=== PATIENT | female | born 1955 | race Caucasian/White ===

== ENCOUNTER 2017-12-20 13:25 | Emergency (ER) | payer SELFPAY ==
[2017-02-05 17:00] VITALS: Wt 79.4 kg
[~2017-12-20 13:25] MED LIST: ACET-1966 PO; ASPI-757 PO; CELE-1 PO; DIA5 PO; HYDR-389 PO; MELO-150 PO; OXYC-823 PO
[2017-12-20] MEDS ORDERED: MULT-1335 PO (13:51)
[2017-12-20] MEDS ORDERED: NAPR220C12 PO (13:51)
[2017-12-20] MEDS ORDERED: NS(*) 0.9% 1000 ML BAG 1,000 ML IV ONE (14:25)
[2017-12-20] MEDS ORDERED: MORPHINE 2 MG/ML SYR IVP ONE (14:25)
[2017-12-20 14:30] LABS: PLATELET COUNT, AUTOMATED 226 K/uL (150-450)
[2017-12-20] MEDS ORDERED: ONDANSETRON 4 MG/2 ML VIAL IVP ONE (14:30)
--- NOTE | 2017-12-20 14:31 | ER Report ---
History and Physical Time Seen By MD: 14:00 Hx. of Stated Complaint: LLQ PAIN STARTED AT 0530 TODAY. PT REPORTS FEVERS/CHILLS, DIARRHEA & VOMITING. HPI/ROS CHIEF COMPLAINT: Abdominal pain HISTORY OF PRESENT ILLNESS: 62-year-old female patient presents to emergency room with complaint of abdominal pain. Patient states this started approximately 5:30 this morning. She states the pain seems to be on the left side and radiates around to the back. She states she's had some nausea and vomiting. She denies having any diarrhea. She did have a small bowel movement this morning. She states that she did have fevers and chills. States she's not had anything to eat or drink today. She states that there is nothing seems to make the pain better or worse. States that it seems to be progressively worsening. Patient has taken any medication for this. REVIEW OF SYSTEMS: Respiratory: No cough, no dyspnea. Cardiovascular: No chest pain, no palpitations. Gastrointestinal: As noted above Musculoskeletal: No back pain. Allergies: Coded Allergies: No Known Drug Allergies (Unverified , 12/20/17) Home Meds Active Scripts Ondansetron (ZOFRAN ODT) 4 Mg Tab.rapdis, 4 MG PO Q6H Y for NAUSEA/VOMITING, # 20 TAB.[place] Prov:VASYL NATION [facility] 12/20/17 Hydrocodone Bit/Acetaminophen (HYDROCODON-ACETAMINOPHEN 5-325) 1 Each Tablet, 1 EACH PO Q4-6H Y for PAIN for 5 Days, #20 TAB Prov:VASYL NATION [facility] 12/20/17 Tamsulosin Hcl (FLOMAX) 0.4 Mg Cap.er.24h, 0.4 MG PO DAILY for 30 Days, #30 CAP Prov:VASYL NATION [facility] 12/20/17 Reported Medications Multivitamin With Minerals (MULTIPLE VITAMIN) 1 Each Tablet, 1 EACH PO DAILY, TAB 12/20/17 Naproxen Sodium (ALEVE) 220 Mg Capsule, 220 MG PO DAILY, CAPSULE 12/20/17 Discontinued Reported Medications Oxycodone Hcl (OXYCONTIN) 10 Mg Tab.er.12h, 10 MG PO Q12H, TAB 02/08/17 Acetaminophen/Hydrocodone (HYDROCODON-ACETAMINOPH 7.5-325) 1 Each Ea, 1-2 EACH PO Q4-6H Y for PAIN, EA 02/08/17 Celecoxib (CELEBREX) 200 Mg Capsule, 200 MG PO BID, CAPSULE take with food 02/08/17 Diazepam (VALIUM) 5 Mg Tablet, 5 MG PO Q6H Y for SPASMS, #15 TAB 02/08/17 Acetaminophen (TYLENOL) 325 Mg Tablet, 325 MG PO Q4-6H Y for PAIN, TAB 01/28/17 Discontinued Scripts Aspirin (ASPIRIN) 325 Mg Tablet, 325 MG PO QDAY for 30 Days, #30 TAB Prov:ANDREW KNUTSON MD 02/08/17 Past Medical/Surgical History Patient has a past medical history of arthritis. Patient has a surgical history of heart catheter, left ovary removed, right knee surgery, bilateral knee replacement, tonsillectomy, laser treatment to retina. Reviewed Nurses Notes: Yes Hx Smoking: No Smoking Status: Never Smoker Hx Substance Use Disorder: No Hx Alcohol Use: No Constitutional Vital Sign - Last 24 Hours 12/20/17 12/20/17 12/20/17 12/20/17 13:47 13:59 14:25 14:30 Temp 98.1 Pulse 112 87 Resp 26 18 B/P (MAP) 129/74 129/74 (92) 122/54 (76) Pulse Ox 92 O2 Delivery Room Air 12/20/17 12/20/17 12/20/17 12/20/17 14:35 15:30 16:00 16:00 Pulse 76 Resp 14 B/P (MAP) 96/49 (65) 101/54 (70) 101/54 (70) 12/20/17 12/20/17 12/20/17 12/20/17 16:38 16:43 16:49 17:00 Pulse 85 Resp 14 B/P (MAP) 109/64 (79) 107/73 (84) Pulse Ox 83 O2 Flow Rate 3.0 12/20/17 17:13 Pulse 64 Resp 11 Pulse Ox 100 Physical Exam General Appearance: The patient is alert, has no immediate need for airway protection and no current signs of toxicity. Respiratory: Chest is non tender, lungs are clear to auscultation. Cardiac: regular rate and rhythm Gastrointestinal: Abdomen is soft and tender in left lower quadrant, no masses, bowel sounds are hypoactive. Musculoskeletal: Neck: Neck is supple and non tender. Extremities have full range of motion and are non tender. Skin: No rashes or lesions. DIFFERENTIAL DIAGNOSIS: After history and physical exam differential diagnosis was considered for abdominal pain including but not limited to appendicitis, cholecystitis, gastritis and urinary tract infection. Included in the differential is kidney stone. Medical Decision Making Data Points Result Diagram: 12/20/17 1411 12/20/17 1411 Laboratory Hematology Test 12/20/17 14:11 Red Blood Count 4.42 M/uL (4.17-5.56) Mean Corpuscular Volume 90.3 fL (80.0-96.0) Mean Corpuscular Hemoglobin 30.7 pg (26.0-33.0) Mean Corpuscular Hemoglobin Concent 34.1 g/dL (32.0-36.0) Red Cell Distribution Width 13.0 % (11.5-14.5) Mean Platelet Volume 9.6 fL (7.2-11.1) Neutrophils (%) (Auto) 87.8 % (39.4-72.5) Lymphocytes (%) (Auto) 9.4 % (17.6-49.6) Monocytes (%) (Auto) 2.3 % (4.1-12.4) Eosinophils (%) (Auto) 0.1 % (0.4-6.7) Basophils (%) (Auto) 0.4 % (0.3-1.4) Nucleated RBC Relative Count (auto) 0.0 /100WBC Neutrophils # (Auto) 7.6 K/uL (2.0-7.4) Lymphocytes # (Auto) 0.8 K/uL (1.3-3.6) Monocytes # (Auto) 0.2 K/uL (0.3-1.0) Eosinophils # (Auto) 0.0 K/uL (0.0-0.5) Basophils # (Auto) 0.0 K/uL (0.0-0.1) Nucleated RBC Absolute Count (auto) 0.00 K/uL Sodium Level 140 mmol/L (137-145) Potassium Level 3.8 mmol/L (3.5-5.0) Chloride Level 107 mmol/L (98-107) Carbon Dioxide Level 22 mmol/L (22-31) Blood Urea Nitrogen 20 mg/dl (7-18) Creatinine 1.10 mg/dl (0.52-1.04) Glomerular Filtration Rate Calc 50.0 Random Glucose 137 mg/dl (75-110) Lactate 1.5 mmol/L (0.7-2.1) Calcium Level 9.6 mg/dl (8.4-10.2) Total Bilirubin 0.6 mg/dl (0.2-1.3) Aspartate Amino Transf (AST/SGOT) 38 U/L (0-35) Alanine Aminotransferase (ALT/SGPT) 29 U/L (0-56) Alkaline Phosphatase 110 U/L (0-126) Total Protein 7.5 g/dl (6.3-8.2) Albumin 4.1 g/dl (3.5-5.0) Chemistry Test 12/20/17 14:11 White Blood Count 8.7 k/uL (4.5-11.0) Red Blood Count 4.42 M/uL (4.17-5.56) Hemoglobin 13.6 g/dL (12.0-16.0) Hematocrit 39.9 % (34.0-47.0) Mean Corpuscular Volume 90.3 fL (80.0-96.0) Mean Corpuscular Hemoglobin 30.7 pg (26.0-33.0) Mean Corpuscular Hemoglobin Concent 34.1 g/dL (32.0-36.0) Red Cell Distribution Width 13.0 % (11.5-14.5) Platelet Count 226 K/uL (150-450) Mean Platelet Volume 9.6 fL (7.2-11.1) Neutrophils (%) (Auto) 87.8 % (39.4-72.5) Lymphocytes (%) (Auto) 9.4 % (17.6-49.6) Monocytes (%) (Auto) 2.3 % (4.1-12.4) Eosinophils (%) (Auto) 0.1 % (0.4-6.7) Basophils (%) (Auto) 0.4 % (0.3-1.4) Nucleated RBC Relative Count (auto) 0.0 /100WBC Neutrophils # (Auto) 7.6 K/uL (2.0-7.4) Lymphocytes # (Auto) 0.8 K/uL (1.3-3.6) Monocytes # (Auto) 0.2 K/uL (0.3-1.0) Eosinophils # (Auto) 0.0 K/uL (0.0-0.5) Basophils # (Auto) 0.0 K/uL (0.0-0.1) Nucleated RBC Absolute Count (auto) 0.00 K/uL Glomerular Filtration Rate Calc 50.0 Lactate 1.5 mmol/L (0.7-2.1) Calcium Level 9.6 mg/dl (8.4-10.2) Total Bilirubin 0.6 mg/dl (0.2-1.3) Aspartate Amino Transf (AST/SGOT) 38 U/L (0-35) Alanine Aminotransferase (ALT/SGPT) 29 U/L (0-56) Alkaline Phosphatase 110 U/L (0-126) Total Protein 7.5 g/dl (6.3-8.2) Albumin 4.1 g/dl (3.5-5.0) EKG/Imaging Imaging EXAMINATION: CT abdomen and pelvis with contrast COMPARISON: None. HISTORY: abdominal pain PROCEDURE: Multiplanar contrast enhanced CT of the abdomen and pelvis with 85 mL intravenous Isovue 370. One of the following dose optimization techniques was utilized in the performance of this exam: Automated exposure control; adjustment of the mA and/or kV according to the patient's size; or use of an iterative reconstruction technique. Specific details can be referenced in the facility's radiology CT exam operational policy. FINDINGS: Visualized thorax: Atelectasis. No acute findings. Liver: Negative. Gallbladder and biliary system: Negative Spleen: Negative. Pancreas: Negative. Adrenal glands: Negative. Kidneys and bladder: Left kidney asymmetric delayed parenchymal enhancement with moderate hydronephrosis and perinephric stranding due to a 6 x 4 x 5 mm ureteral stone approximately 9 cm distal to the ureteropelvic junction. No other radiopaque urolithiasis is identified. The right kidney is unremarkable. Urinary bladder is within normal limits. Vessels: Within normal limits. Bowel and mesentery: Stomach, small bowel, and appendix are within normal limits. Small amount of stool in the colon. No bowel or mesenteric inflammation. Pelvic organs: Age-appropriate. Lymph nodes: No adenopathy. Free air/free fluid: None. Abdominal wall and osseous structures: Abdominal wall is intact. Mild degenerative change throughout the visualized spine. No acute findings. IMPRESSION: Left-sided moderate obstructive uropathy due to a 6 x 4 x 5 mm stone in the proximal ureter. Report Dictated By: Seth Brunson MD at 12/20/2017 3:23 PM Report E-Signed By: Seth Brunson MD at 12/20/2017 3:30 PM ED Course/Re-evaluation ED Course Patient was admitted examiner, history and physical or pain. Differential diagnoses were considered. On examination patient has significant amounts pain to the left lower quadrant that seemed to radiate around to the back. Patient was having uncontrollable amounts of pain. A CBC, CMP were done. Patient had normal labs. A CT scan of abdomen and pelvis was done which did show a large kidney stone. I discussed the findings with the patient and her . I believe that with size a kidney stone that we'll need to have lithotripsy to break it up. I did discuss the case with Dr. Tran, urologist. He recommended giving the patient pain medication, Flomax and having her follow-up with him on Friday. He stated that he would give her a call tomorrow. He requested that we print off a face sheet for him. That was done. We discussed with patient whether she felt able to go home. Patient states that she was concerned about the pain. I believe with proper pain control, hydrocodone and Flomax the patient will be able to tolerate being at home. She is return if condition worsens. I did inform her that Dr. Tran will be calling him. She verbalized understanding and agreement with plan. She states she would prefer to go home. Patient was discharged home. Decision to Disposition Date: Dec 20, 2017 Decision to Disposition Time: 16:00 Depart Departure Latest Vital Signs Vital Signs Date Time Temp Pulse Resp B/P (MAP) Pulse Ox O2 Delivery O2 Flow Rate FiO2 12/20/17 17:13 64 11 100 12/20/17 17:00 107/73 (84) 12/20/17 16:49 3.0 12/20/17 13:47 98.1 Room Air Impression: Primary Impression: Kidney stone on left side Condition: Improved Disposition: HOME OR SELF-CARE Referrals: MYNOR DOMINGUEZ PA-C (PCP) New Scripts Ondansetron (ZOFRAN ODT) 4 Mg Tab.rapdis 4 MG PO Q6H Y for NAUSEA/VOMITING, #20 TAB.[place] Prov: VASYL NATION STEV[facility] 12/20/17 Hydrocodone Bit/Acetaminophen (HYDROCODON-ACETAMINOPHEN 5-325) 1 Each Tablet 1 EACH PO Q4-6H Y for PAIN for 5 Days, #20 TAB Prov: CHAPISVASYL FNP 12/20/17 Tamsulosin Hcl (FLOMAX) 0.4 Mg Cap.er.24h 0.4 MG PO DAILY for 30 Days, #30 CAP Prov: VASYL NATION STEVEN 12/20/17 Patient Instructions: Kidney Stones (ED) Additional Instructions: Increase your water intake. Rest and take it easy. Await Dr. Anderson phone call tomorrow and follow up with him on Friday. Take hydrocodone for pain as needed every 4-6 hours. Take medication fairly regularity to stay ahead of pain. Take Flomax once daily until the stone passes or Dr. Tran counsels you otherwise. Return to the emergency department if your condition worsens CHAPISVASYL HARRIS Dec 20, 2017 14:31
[2017-12-20] MEDS ORDERED: IOPAMIDOL 76% 100 ML INFUS BTL 100 ML ONE (14:34)
--- NOTE | 2017-12-20 15:34 | RADIOLOGY IMAGING REPORT ---
[place] [facility] [place] NAME: Veronica Grey : 1955 MR: [id number] V: [id number] EXAM DATE: ORDERING PHYSICIAN: VASYL NATION TECHNOLOGIST: [place] [facility] [place] Veronica Grey : 1955 Visit/Account:[id number] Date of Sevice: 12/20/2017 EXAMINATION: CT abdomen and pelvis with contrast COMPARISON: None. HISTORY: abdominal pain PROCEDURE: Multiplanar contrast enhanced CT of the abdomen and pelvis with 85 mL intravenous Isovue 3 70. One of the following dose optimization techniques was utilized in the performance of this exam: A utomated exposure control; adjustment of the mA and/or kV according to the patient's size; or use of an iterative reconstruction technique. Specific details can be referenced in the facility's radiolo gy CT exam operational policy. FINDINGS: Visualized thorax: Atelectasis. No acute findings. Liver: Negative. Gallbladder and biliary system: Negative Spleen: Negative. Pancreas: Negative. Adrenal glands: Negative. Kidneys and bladder: Left kidney asymmetric delayed parenchymal enhancement with moderate hydronephro sis and perinephric stranding due to a 6 x 4 x 5 mm ureteral stone approximately 9 cm distal to the u reteropelvic junction. No other radiopaque urolithiasis is identified. The right kidney is unremarkab le. Urinary bladder is within normal limits. Vessels: Within normal limits. Bowel and mesentery: Stomach, small bowel, and appendix are within normal limits. Small amount of sto ol in the colon. No bowel or mesenteric inflammation. Pelvic organs: Age-appropriate. Lymph nodes: No adenopathy. Free air/free fluid: None. Abdominal wall and osseous structures: Abdominal wall is intact. Mild degenerative change throughout the visualized spine. No acute findings. IMPRESSION: Left-sided moderate obstructive uropathy due to a 6 x 4 x 5 mm stone in the proximal ureter. Report Dictated By: Seth Brunson MD at 12/20/2017 3:23 PM Report E-Signed By: Seth Brunson MD at 12/20/2017 3:30 PM WSN:[id number]
[2017-12-20 17:00] VITALS: BP 107/73
[2017-12-20] MEDS ORDERED: HYDR-385 PO (17:09)
[2017-12-20] MEDS ORDERED: TAMS0.4C25 PO (17:09)
[2017-12-20] MEDS ORDERED: ONDA4TAB PO (17:28)
[2017-12-20] MEDS ORDERED: ONDANSETRON 4 MG ODT TABDP SL ONE (17:30)
[2017-12-23] MEDS ORDERED: ACET500T68 PO (15:19)
== END 2017-12-20 17:32 | disposition home or self-care (01) ==
LOC: ER 14:08
DX: N20.0 Calculus of kidney (principal)
CPT/HCPCS: 74177; 83605; 85025; 96374; 96375; 99284; J2270; J2405; J7030; Q9967; S0119; 82040; 82247; 82310; 82374; 82435; 82565; 82947; 84075; 84132; 84155; 84295; 84450; 84460; 84520

== ENCOUNTER 2017-12-22 09:49 | Day surgery (SDC) | payer SELFPAY ==
[2017-02-05 17:00] VITALS: Ht 162.6 cm; Wt 77.6 kg
[~2017-12-22] VITALS: Ht 162.6 cm; Wt 77.6 kg
[~2017-12-22 09:49] MED LIST changes: +HYDR-385 PO; +MULT-1335 PO; +NAPR220C12 PO; +ONDA4TAB PO; +TAMS0.4C25 PO
[2017-12-22] MEDS ORDERED: NORMOSOL R SOLN(*) 1000 ML BAG 1,000 ML IV PRN (10:45)
[2017-12-22] MEDS ORDERED: MIDAZOLAM 2 MG/2 ML VIAL IVP PRN (10:45)
[2017-12-22] MEDS ORDERED: cefTRIAXone(*) 1 GM VIAL 1 GM in NS(*) 0.9% 100 ML ADDVANT BAG 100 ML IVPB ONE (10:45)
[2017-12-22] MEDS ORDERED: LIDOCAINE/SOD BICARB 8.4% SYR ID ONE (10:45)
[2017-12-22] MEDS ORDERED: FAMOTIDINE 20 MG TAB PO ONE (10:45)
[2017-12-22] MEDS ORDERED: ONDANSETRON 4 MG/2 ML VIAL ONE (11:17)
[2017-12-22] MEDS ORDERED: PROPOFOL EMUL(*) 10MG/ML 20 ML 20 ML ONE (11:17)
[2017-12-22] MEDS ORDERED: DEXAMETHASONE SOD PHOS 10MG/ML ONE (11:17)
[2017-12-22] MEDS ORDERED: LIDOCAINE MPF 1% 5 ML VIAL ONE (11:17)
[2017-12-22] MEDS ORDERED: fentaNYL CITR 100 MCG/2 ML AMP ONE (11:17)
[2017-12-22 11:19] VITALS: BP 124/66
[2017-12-22] MEDS ORDERED: IOPAMIDOL-200 50 ML VIAL IS ONE (11:38)
[2017-12-22] MEDS ORDERED: LIDOCAINE MPF 4% 200MG/5ML AMP ONE (12:25)
[2017-12-22] MEDS ORDERED: LIDOCAINE 4% SOLN 50 ML BTL TP ONE (12:27)
[2017-12-22] MEDS ORDERED: KETOROLAC 30 MG/ML VIAL ONE (13:10)
[2017-12-22] MEDS ORDERED: CEPH500T7 PO (13:21)
[2017-12-22] MEDS ORDERED: FAMO20TA28 PO (13:22)
[2017-12-22] MEDS ORDERED: IBUP600T22 PO (13:23)
[2017-12-22] MEDS ORDERED: PHEN200T32 PO (13:23)
[2017-12-22] MEDS ORDERED: HYDR-4308 PO (13:24)
[2017-12-22 13:42] VITALS: BP 125/63
[2017-12-22 13:46] VITALS: BP 119/62
[2017-12-22 13:48] VITALS: BP 110/67
--- NOTE | 2017-12-22 14:34 | RADIOLOGY IMAGING REPORT ---
FACILITY: [facility] PATIENT NAME: Veronica Grey : 1955 MR: [id number] V: [id number] EXAM DATE: ORDERING PHYSICIAN: EBRNA HARRIS TECHNOLOGIST: Location: [facility] - [place] Patient: Veronica Grey : 1955 Visit/Account:[id number] Date of Sevice: 12/22/2017 Examination: Retrograde pyelogram. HISTORY: Kidney stones. FINDINGS: 5 intraoperative fluoroscopic spot images are obtained during a left retrograde pyelogram a nd stent placement. 0.04 minutes of fluoroscopy time was used. The emergency response coordinator images are unremarkable. On the third image, a cystoscope is in place and there is retrograde opacification of the left ureter . A suspected filling defect is seen within the ureter at the level of the L4-L5 disc space. On the fourth image, a wire overlies the ureter and intrarenal collecting system. On the final image, a le ft nephroureteral stent has been placed. Contrast is seen within a nondilated intrarenal collecting system. IMPRESSION: 1. Limited retrograde pyelogram images with findings as above. Correlate with operative note. Report Dictated By: Francisco Britt at 12/22/2017 2:27 PM Report E-Signed By: Francisco Britt at 12/22/2017 2:30 PM WSN:[email or web address]
--- NOTE | 2017-12-23 04:23 | OPERATIVE REPORT 1 ---
EVENT DATE: December 22, 2017 SURGEON: Raphael Tran MD ANESTHESIOLOGIST: Chris Santillan MD ANESTHESIA: General. PREOPERATIVE DIAGNOSIS Left ureterolithiasis with associated severe colic, nausea and vomiting. POSTOPERATIVE DIAGNOSIS Left ureterolithiasis with associated severe colic, nausea and vomiting. PROCEDURE PERFORMED 1. Cystourethroscopy. 2. Left ureteral pyelogram. 3. Manipulation of left ureteral stone. 4. Left ureteral stent placement. DESCRIPTION OF PROCEDURE Under general anesthetic, the patient was prepped and draped in the extended lithotomy position. The 21 panendoscope admitted through the urethra into the bladder. No stones were visible in the bladder. The 10 cone tip was passed up the left collecting system to the stone. Ureteropyelogram showed distal left upper ureteral stone. Using the 10 cone tip, I was unable to dislodge the stone. 4% lidocaine mixed with jelly was introduced up the left ureter. Again, the stone would not dislodge. The access catheter was placed. The guide wire was placed. The guide wire was passed up to the stone and the guide wire was passed with some resistance on manipulation into the left kidney. X-ray confirmed satisfactory positioning in the left kidney. The 6 [place] x 26 cm Percuflex Plus was passed up the left ureter into the kidney fairly easily. It is my clinical impression that the stone might have eventually dislodged and hopefully migrated up into the left kidney. There was copious old bloody drainage. The bladder was drained. The scope was withdrawn. X-ray confirmed satisfactory positioning of the stent in the left kidney. Full curl was visible in the bladder. Patient tolerated the procedure satisfactorily and returned to the recovery room in satisfactory condition. INDICATION FOR PROCEDURE This is a 62-year-old white female complaining of left ureterolithiasis, which was confirmed today. Options were discussed with the patient, and she was agreeable to evaluation and therapy. Patient was having intermittent episodes of severe colic with associated nausea and vomiting. She was agreeable to further evaluation and therapy. That has been accomplished , see operative note for details. DISCHARGE INSTRUCTIONS Patient will be discharged home when alert and functional. Force fluids, 12 glasses of water per day. She is to strain all of her urine. She was sent home with strainers. Plan followup this coming for reevaluation and therapy of her ureterolithiasis. She will be discharged home on her usual medications in addition to Keflex, Pepcid, Imodium, Pyridium, and Vicodin therapy. NEREYDAD
[2017-12-23] MEDS ORDERED: ACET500T68 PO (15:19)
== END 2017-12-22 13:42 | disposition home or self-care (01) ==
LOC: OR 09:49
DX: N20.1 Calculus of ureter (principal)
CPT/HCPCS: 52330; 52332; 74420; 81001; 87088; C1758; C1894; C2617; J0696; J1100; J1885; J2001; J2405; J2704; J3010; J7050; Q9966

== ENCOUNTER 2017-12-25 00:16 | Day surgery (SDC) | payer SELFPAY ==
[2017-02-05 17:00] VITALS: Ht 162.6 cm; Wt 78.5 kg
[~2017-12-25] VITALS: Ht 162.6 cm; Wt 78.5 kg
[~2017-12-25 00:16] MED LIST changes: +ACET500T68 PO; +CEPH500T7 PO; +FAMO20TA28 PO; +HYDR-4308 PO; +IBUP600T22 PO; +PHEN200T32 PO
[2017-12-25 15:44] VITALS: BP 131/74
[2017-12-25] MEDS ORDERED: IOPAMIDOL-200 50 ML VIAL IS ONE (16:02)
[2017-12-25] MEDS ORDERED: LIDOCAINE/SOD BICARB 8.4% SYR ID ONE (16:05)
[2017-12-25] MEDS ORDERED: FAMOTIDINE 20 MG TAB PO ONE (16:05)
[2017-12-25] MEDS ORDERED: NORMOSOL R SOLN(*) 1000 ML BAG 1,000 ML IV PRN (16:05)
[2017-12-25] MEDS ORDERED: ceFAZolin(*) 1 GM VIAL 1 GM in NS(*) 0.9% 100 ML ADDVANT BAG 100 ML IVPB ONE (16:05)
[2017-12-25] MEDS ORDERED: MIDAZOLAM 2 MG/2 ML VIAL IVP PRN (16:05)
--- NOTE | 2017-12-25 16:08 | RADIOLOGY IMAGING REPORT ---
[place] [facility] [place] Veronica Grey : 1955 MR: [id number] V: [id number] EXAM DATE: ORDERING PHYSICIAN: BERNA HARRIS TECHNOLOGIST: Location: [facility] Patient: Veronica Grey : 1955 Visit/Account:[id number] Date of Sevice: 12/25/2017 EXAMINATION: KUB with obliques 12/25/2017 12:20 PM HISTORY: KIDNEY STONE COMPARISON: CT 12/20/2017 FINDINGS: Left ureteral stent appears to be in good position. There is an ovoid calcification proje cting lateral to the stent over the left L5 transverse spinous process on the frontal view which is n ot well-defined in either oblique projection. This could potentially be a persistent ureteral calcul us. There is no bony sclerotic focus on the CT to account for this. No other calculi evident. Pelv ic calcifications are shown by the CT to be phleboliths. Bowel gas pattern is nonspecific. Degenera tive spurring in the spine. IMPRESSION: Indwelling left ureteral stent with calcific density which could potentially represent a persistent ureteral stone at the L5 level. Report Dictated By: Clay Resendiz MD at 12/25/2017 4:00 PM Report E-Signed By: Clya Resendiz MD at 12/25/2017 4:04 PM WSN:[email or web address]
--- NOTE | 2017-12-25 16:08 | RADIOLOGY IMAGING REPORT ---
[place] [facility] [place] NAME: Veronica Grey : 1955 MR: [id number] V: [id number] EXAM DATE: ORDERING PHYSICIAN: BERNA HARRIS TECHNOLOGIST: Location[place] [facility] [place] Patient: Veronica Grey : 1955 Visit/Account:[id number] Date of Sevice: 12/25/2017 EXAMINATION: KUB with obliques 12/25/2017 12:20 PM HISTORY: KIDNEY STONE COMPARISON: CT 12/20/2017 FINDINGS: Left ureteral stent appears to be in good position. There is an ovoid calcification proje cting lateral to the stent over the left L5 transverse spinous process on the frontal view which is n ot well-defined in either oblique projection. This could potentially be a persistent ureteral calcul us. There is no bony sclerotic focus on the CT to account for this. No other calculi evident. Pelv ic calcifications are shown by the CT to be phleboliths. Bowel gas pattern is nonspecific. Degenera tive spurring in the spine. IMPRESSION: Indwelling left ureteral stent with calcific density which could potentially represent a persistent ureteral stone at the L5 level. Report Dictated By: Clay Resendiz MD at 12/25/2017 4:00 PM Report E-Signed By: Clay Resendiz MD at 12/25/2017 4:04 PM WSN:[email or web address]
[2017-12-25] MEDS ORDERED: ONDANSETRON 4 MG/2 ML VIAL ONE (16:18)
[2017-12-25] MEDS ORDERED: PROPOFOL EMUL(*) 10MG/ML 20 ML 20 ML ONE (16:18)
[2017-12-25] MEDS ORDERED: DEXAMETHASONE SOD PHOS 10MG/ML ONE (16:18)
[2017-12-25] MEDS ORDERED: fentaNYL CITR 100 MCG/2 ML AMP ONE ×2 (16:19→17:23)
[2017-12-25] MEDS ORDERED: GENTAMICIN 80 MG/2 ML VIAL ONE (16:34)
[2017-12-25] MEDS ORDERED: LACTATED RINGER 3000 ML BAG IR ONE (17:16)
[2017-12-25] MEDS ORDERED: NS 0.9% 3000 ML IRRIGATION BAG IR ONE (17:19)
[2017-12-25] MEDS ORDERED: HYDROmorphone HCL 2 MG/ML SDV ONE (17:29)
[2017-12-25] MEDS ORDERED: KETOROLAC 30 MG/ML VIAL ONE (17:30)
[2017-12-25] MEDS ORDERED: KETO30CA16 IJ (18:03)
--- NOTE | 2017-12-25 18:13 | RADIOLOGY IMAGING REPORT ---
[place] [facility] [place] NAME: Veronica Grey : 1955 MR: [id number] V: [id number] EXAM DATE: ORDERING PHYSICIAN: BERNA HARRIS TECHNOLOGIST: Location: [facility] Patient: Veronica Grey : 1955 Visit/Account:[id number] Date of Sevice: 12/25/2017 Exam: C-ARM FLUORO 1 HR Indication: hematuria, RAD Comparison: None available Findings: Fluoroscopy is provided for cystoscopy. Image shows a left ureteral stent. Fluoroscopy time one second DOSE: Air kerma was 1.12 mGy. IMPRESSION: Fluoroscopy for cystoscopy Report Dictated By: Rommel Hyatt at 12/25/2017 6:08 PM Report E-Signed By: Rommel Hyatt at 12/25/2017 6:09 PM WSN:[id number]
[2017-12-25 18:15] VITALS: BP 131/73
[2017-12-25 18:30] VITALS: BP 137/73
[2017-12-25 19:00] VITALS: BP 126/82
[2017-12-25 19:04] VITALS: BP 133/79
[2017-12-25 19:14] VITALS: BP 131/84
--- NOTE | 2017-12-25 19:14 | OPERATIVE REPORT 1 ---
EVENT DATE: December 25, 2017 SURGEON: Raphael Tran MD ANESTHESIOLOGIST: Raphael Muro MD ANESTHESIA: General anesthetic. PREOPERATIVE DIAGNOSIS Left renal lithiasis. POSTOPERATIVE DIAGNOSIS Left ureteral lithiasis. PROCEDURES PERFORMED 1. Cystourethroscopy. 2. Left ureteral stent removal. 3. Left laser lithotripsy of left ureteral stone. 4. Extraction of left ureteral stones. DESCRIPTION OF PROCEDURE Under general anesthetic, the patient was prepped and draped in the extended lithotomy position. The 21 panendoscope was admitted through the urethra into the bladder. No stones were visible in the bladder. The external stent was emanating from the left ureteral orifice. The stent was removed. The bladder showed again no lithiasis. The semi-rigid ureterorenoscope was passed up the left collecting system without any difficulty. In the left upper ureter, the stone was visualized. It filled the entire diameter of the ureter. The stone was manipulated cephalad. The stone appeared to be lodged in place. The laser probe 365 was used to laser the upper ureteral stone. That was accomplished after approximately 10 to 15 minutes of work. The stone fragments were removed. Ascending and descending the ureter and in and out of the kidney showed no evidence of residual lithiasis. Bladder was drained. Patient tolerated the procedure satisfactorily and returned to the recovery room in satisfactory condition. This is a 62-year-old white female complaining of left renal lithiasis with associated severe colic, nausea, and vomiting since last Friday. She was subsequently evaluated and treated with a left ureteral stent. She has improved remarkably in the past few days. The stone on x-ray appeared to be in the distal portion of the upper segment of the left ureter. Options were discussed with the patient and her . She was agreeable to further evaluation and therapy. That has been accomplished. See operative note for details. Patient will be ready for discharge home when alert and functional. She is to force fluids, 12 glasses of water per day. Activities are as tolerated. She is to strain all her urine and sent home with strainers. She is to continue all her usual medications. A copy of instructions were given to the patient. Plan to follow up in the office on the December. RICHAR
== END 2017-12-25 18:15 | disposition home or self-care (01) ==
LOC: OR 00:16
DX: N20.2 Calculus of kidney with calculus of ureter (principal)
CPT/HCPCS: 52320; 74019; 76000; 87088; J0690; J1100; J1170; J1580; J1885; J2405; J2704; J3010; J7050; Q9966

== ENCOUNTER → 2018-01-02 | Outpatient (CLI) | payer SELFPAY ==
[2017-02-05 17:00] VITALS: BMI 31.1
[~2018-01-02] MED LIST changes: +KETO30CA16 IJ
--- NOTE | 2018-01-02 17:18 | RADIOLOGY IMAGING REPORT ---
FACILITY: [facility] - [place] PATIENT NAME: Veronica Grey : 1955 MR: [id number] V: [id number] EXAM DATE: ORDERING PHYSICIAN: BERNA HARRIS TECHNOLOGIST: Location: [facility] [place] Patient: Veronica Grey : 1955 Visit/Account:[id number] Date of Sevice: 01/02/2018 EXAMINATION: CT abdomen and pelvis without IV contrast HISTORY: Nephrolithiasis. TECHNIQUE: Axial CT images of the abdomen and pelvis were obtained without IV contrast, with christensen l and sagittal 2D reconstructed images. One of the following dose optimization techniques was utilized in the performance of this exam: Autom ated exposure control; adjustment of the mA and/or kV according to the patient's size; or use of an i terative reconstruction technique. Specific details can be referenced in the facility's radiology C T exam operational policy. COMPARISON: [facility] 12/25/2017. CT abdomen/pelvis with IV contrast 12/20/2017. FINDINGS: Evaluation of the solid and viscus parenchymal organs is limited without the benefit of IV contrast. Kidney/ureters/bladder: The left-sided nephroureteral stent has been removed. No recurrent hydronephr osis on the left. Residual punctate 1 mm calcification along the upper left ureter, approximately 6 c m below the UPJ near the site of the prior obstructing calculus. No additional urinary calculi. The urinary bladder is mildly distended and grossly unremarkable. No retroperitoneal fluid or hemorrh age. Liver: Negative. Gallbladder and bile ducts: Negative. Spleen: Negative. Pancreas: Negative. Adrenal glands: Negative. Bowel and peritoneum: The small bowel and colon are normal in caliber, without evidence of obstructi on or any focal inflammatory process. There are a few scattered colonic diverticula, without evidence of diverticulitis. Normal appendix. No free fluid or free intraperitoneal air. Pelvic structures: Negative. Lymph node assessment: Negative. Vessels: Negative. Musculoskeletal: Negative. Body wall: Negative. Lung bases: Negative. IMPRESSION: 1. Left-sided nephroureteral stent has been removed. No recurrent hydronephrosis. 2. Interval removal of the prior left ureteral calculus. There is a punctate 1 mm calcification in th e upper left ureter at the site of the prior obstructing calculus, likely a tiny residual stone fragm ent. This does not appear to be causing any significant obstruction. 3. No other new intra-abdominal findings. Report Dictated By: Josh Crystal MD at 01/02/2018 5:03 PM Report E-Signed By: Josh Crystal MD at 01/02/2018 5:14 PM WSN:[id number]
== END ==
LOC: CT 16:22
DX: N20.0 Calculus of kidney (principal)
CPT/HCPCS: 74176; 82365; 88300